=== PATIENT | male | born 1985 | race Caucasian/White ===

== ENCOUNTER 2020-09-12 10:51 | Emergency (ER) | payer OTHER ==
[2020-09-12] MEDS ORDERED: Lidocaine 5% Oint 35.44 GM Tube TOP ONE (11:30)
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
== END 2020-09-12 12:30 | disposition home or self-care (01) ==
LOC: LB.ED 10:51
DX: T20.112A Burn of first degree of left ear [any part, except ear drum], initial encounter (principal); X08.8XXA Exposure to other specified smoke, fire and flames, initial encounter
CPT/HCPCS: 16000; 99282; 99283-25; A9270-GY